=== PATIENT | male | born 2000 | race Caucasian/White ===

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

== ENCOUNTER 2020-03-30 16:08 | Emergency (ER) | payer SELFPAY ==
--- NOTE | 2020-03-30 16:53 | ER Document Report ---
ED Medical Screen (RME) - General Chief Complaint: Flank Pain Stated Complaint: FLANK PAIN Time Seen by Provider: 03/30/20 16:40 Primary Care Provider: LIZZY RODRIGEZ MD [Primary Care Provider] - Follow up as needed Mode of Arrival: Ambulatory Information source: Patient TRAVEL OUTSIDE OF THE [place] IN LAST 30 DAYS: No - HPI Notes: 03/30/20 16:47 20-year-old male presents emergency room with complaints of 4 days of dysuria, frequency and urgency with voiding. Today he states he was sitting on the toilet trying to have a BM and he had severe left-sided flank pain. Patient reports that he does have a left inguinal hernia that was diagnosed about a year and a half ago, states he supposed to follow-up with a surgeon but never followed up with a surgeon. States for his job he does do a lot of heavy lifting. Patient denies any radiating pain to his groin or testes. Denies testicular pain. Patient denies any new sexual partners, states he has been a sexual same sexual partner, not using any condoms. Denies any penile drainage or penile pain. No prior history of STIs. Denies any fevers or chills, chest pain, shortness of breath nausea vomiting or diarrhea. I have greeted and performed a rapid initial assessment of this patient. A comprehensive ED assessment and evaluation of the patient, analysis of test re sults and completion of the medical decision making process will be conducted by additional ED providers. PHYSICAL EXAMINATION: GENERAL: Well-appearing, well-nourished and in no acute distress. CV: s1, s2 regular LUNGS: No respiratory distress abd: reducable left inguinal hernia Musculoskeletal: Normal range of motion NEUROLOGICAL: Normal speech, normal gait. SKIN: Warm, Dry, normal turgor, no rashes or lesions noted. - Related Data Allergies/Adverse Reactions: No Known Allergies Allergy (Verified 10/05/14 23:57) Past Medical History - Social History Family history: Reviewed & Not Pertinent Pulmonary Medical History: Reports: Hx Asthma Renal/ Medical History: Denies: Hx Peritoneal Dialysis Musculoskeltal Medical History: Reports Hx Musculoskeletal Deformity, Reports Hx Musculoskeletal Trauma Psychiatric Medical History: Reports: Hx Anxiety, Hx Depression Traumatic Medical History: Reports: Hx Fractures - Immunizations Immunizations up to date: Yes Hx Diphtheria, Pertussis, Tetanus Vaccination: Yes Physical Exam - Vital signs Vitals: Temp Pulse Resp BP Pulse Ox 99.0 F 89 16 129/72 H 100 03/30/20 16:17 03/30/20 16:17 03/30/20 16:17 03/30/20 16:17 03/30/20 16:17 Course - Vital Signs Vital signs: Temp Pulse Resp BP Pulse Ox 99.0 F 89 16 129/72 H 100 03/30/20 16:17 03/30/20 16:17 03/30/20 16:17 03/30/20 16:17 03/30/20 16:17 Doctor's Discharge - Discharge Referrals: LIZZY RODRIGEZ MD [Primary Care Provider] - Follow up as needed
[2020-03-30 17:16] LABS: APPEARANCE,URINE SLIGHTLY-CLOUDY; BILIRUBIN,URINE NEGATIVE (NEGATIVE); COLOR,URINE YELLOW; GLUCOSE, URINE NEGATIVE (NEGATIVE); KETONES,URINE NEGATIVE (NEGATIVE); LEUKOCYTE ESTERASE,URINE NEGATIVE (NEGATIVE); NITRITE,URINE NEGATIVE (NEGATIVE); PROTEIN,URINE NEGATIVE (NEGATIVE); URINE SPECIFIC GRAVITY 1.027
[2020-03-30 17:20] LABS: ABSOLUTE LYMPHOCYTES (AUTO) 2.2 10^3/uL (0.5-4.7); ABSOLUTE MONOCYTES (AUTO) 0.5 10^3/uL (0.1-1.4); ABSOLUTE NEUT (AUTO) 7.6 10^3/uL (1.7-8.2); BASOPHILS % (AUTO) 0.2 % (0-2); EOSINOPHILS % (AUTO) 0.3 % (0-6); HEMATOCRIT 46.5 % (37.9-51.0); HEMOGLOBIN 16.1 g/dL (13.5-17.0); MEAN CORPUSCULAR HEMOGLOBIN 29.4 pg (27.0-33.4); MEAN CORPUSCULAR HGB CONC 34.5 g/dL (32.0-36.0); MEAN CORPUSCULAR VOLUME 85 fl (80-97); MONOCYTES % (AUTO) 4.4 % (3-13); PLATELET COUNT 343 10^3/uL (150-450); RED BLOOD COUNT 5.46 10^6/uL (4.35-5.55); RED CELL DISTRIBUTION WIDTH 13.4 % (11.5-14.0); SEGMENTED NEUTROPHILS % (AUTO) 74.1 % (42-78); TOTAL CELLS COUNTED % (AUTO) 100 %; WHITE BLOOD COUNT 10.3 10^3/uL (4.0-10.5)
[2020-03-30 17:38] LABS: ALKALINE PHOSPHATASE 67 U/L (38-126); ANION GAP 6 (5-19); ASPARTATE AMINO TRANSFERASE 22 U/L (17-59); BILIRUBIN,TOTAL 0.8 mg/dL (0.2-1.3); BLOOD UREA NITROGEN 15 mg/dL (7-20); CALCIUM 9.8 mg/dL (8.4-10.2); CARBON DIOXIDE 28 mmol/L (22-30); CHLORIDE 105 mmol/L (98-107); GLUCOSE 108 mg/dL (75-110); POTASSIUM 3.9 mmol/L (3.6-5.0); TOTAL PROTEIN 7.4 g/dL (6.3-8.2)
--- NOTE | 2020-03-30 18:20 | RADIOLOGY REPORT (SQ) ---
EXAM DESCRIPTION: U/S SCROTUM W/DOPPLER IMAGES COMPLETED DATE/TIME: 03/30/2020 5:45 pm REASON FOR STUDY: L inguinal hernia COMPARISON: None. TECHNIQUE: Static and realtime barrera scale imaging of the scrotum and testes. Selected color Doppler and spectral images recorded to document blood flow. LIMITATIONS: None. FINDINGS: RIGHT: TESTICLE: Normal size, 3.6 x 2.2 x 1.7 cm. Homogeneous echotexture. Microlithiasis. EPIDIDYMIS: Normal, 11 mm. HYDROCELE OR VARICOCELE: No. HERNIA OR EXTRA-TESTICULAR MASS: No. OTHER: No other significant finding. LEFT: TESTICLE: Normal size, 4 x 2.4 x 1.7 cm. Homogeneous echotexture. Microlithiasis EPIDIDYMIS: Normal, 13 mm HYDROCELE OR VARICOCELE: No. HERNIA OR EXTRA-TESTICULAR MASS: Not identified with or without Valsalva. OTHER: No other significant finding. IMPRESSION: Bilateral testicular microlithiasis. No other significant finding. TECHNICAL DOCUMENTATION: JOB ID: [id number] 2010 [employer]- All Rights Reserved Reading location - IP/workstation name: [email or web address]
--- NOTE | 2020-03-30 18:21 | RADIOLOGY REPORT (SQ) ---
EXAM DESCRIPTION: U/S RETROPERITON (RENAL/AORTA) IMAGES COMPLETED DATE/TIME: 03/30/2020 5:45 pm REASON FOR STUDY: L flank pain x 3 hours COMPARISON: None. TECHNIQUE: Dynamic and static grayscale images acquired of the kidneys and bladder and recorded on P ACS. Additional selected color Doppler and spectral images recorded. LIMITATIONS: None. FINDINGS: RIGHT KIDNEY: Normal size, 12 cm. Normal echogenicity. No solid or suspicious masses. No h ydronephrosis. No calcifications. LEFT KIDNEY: Normal size, 11.5 cm. Normal echogenicity. No solid or suspicious masses. No hydronephr osis. No calcifications. BLADDER: Patient voided prior to exam. OTHER FINDINGS: No other significant finding. IMPRESSION: Normal renal ultrasound. TECHNICAL DOCUMENTATION: JOB ID: [id number] 2010 [employer]- All Rights Reserved Reading location - IP/workstation name: [email or web address]
[2020-03-30 18:45] LABS: CHLAM PCR NOT DETECTED (NOT DETECT)
--- NOTE | 2020-03-30 20:29 | ER Document Report ---
ED General - General Chief Complaint: Urinary Problem Stated Complaint: FLANK PAIN Time Seen by Provider: 03/30/20 16:40 Primary Care Provider: LIZZY RODRIEGZ MD [ACTIVE STAFF] - Follow up as needed Mode of Arrival: Ambulatory TRAVEL OUTSIDE OF THE [place] IN LAST 30 DAYS: No - HPI Notes: Chief complaint: Left flank pain and urinary urgency History of present illness: Previously healthy 20-year-old male taking no regular medications with no known allergies presents with 2-day history intermittent urinary urgency and frequency and mild burning with urination. Today he had some intermittent episodes of severe left flank pain and during this time felt diaphoretic and nauseated thought he was going to pass out. He is currently comfortable. He denies any known prior history of kidney stones. His family history is negative for kidney stones of force he knows. - Related Data Allergies/Adverse Reactions: No Known Allergies Allergy (Verified 10/05/14 23:57) Past Medical History - General Information source: Patient, [facility] Records - Social History Smoking Status: Never Smoker Chew tobacco use (# tins/day): Yes - 1 Frequency of alcohol use: None Drug Abuse: None Family History: Arthritis, Malignancy, Thyroid Disfunction. denies: CAD, CVA, DM, Hyperlipidemia, Hypertension Pulmonary Medical History: Reports: Hx Asthma Renal/ Medical History: Denies: Hx Peritoneal Dialysis Musculoskeletal Medical History: Reports Hx Musculoskeletal Deformity, Reports Hx Musculoskeletal Trauma Psychiatric Medical History: Reports: Hx Anxiety, Hx Depression Traumatic Medical History: Reports: Hx Fractures - Immunizations Immunizations up to date: Yes Hx Diphtheria, Pertussis, Tetanus Vaccination: Yes Review of Systems - Review of Systems Notes: Constitutional: Negative for fever. HENT: Negative for sore throat. Eyes: Negative for visual changes. Cardiovascular: Negative for chest pain. Respiratory: Negative for shortness of breath. Gastrointestinal: As per HPI. Genitourinary: As per HPI. Musculoskeletal: As per HPI. Skin: Negative for rash. Neurological: Negative for headaches, weakness or numbness. 10 point ROS negative except as marked above and in HPI. Physical Exam - Vital signs Vitals: Temp Pulse Resp BP Pulse Ox 99.0 F 89 16 129/72 H 100 03/30/20 16:17 03/30/20 16:17 03/30/20 16:17 03/30/20 16:17 03/30/20 16:17 - Notes Notes: GENERAL: Slender male approximately stated age appearing in no acute distress. SKIN: Good turgor no rashes. HEAD: Normocephalic atraumatic. EYES: PERRLA. EOMI. Conjunctivae and sclerae clear. EARS: CANALS AND TMS CLEAR. NOSE: CLEAR. MOUTH: Moist mucosa. Good dentition. No stridor or edema. No drooling. NECK: Supple. No masses or thyromegaly. No adenopathy. Carotids 2+ without bruits. No JVD. BACK: Symmetrical without tenderness. CHEST: Respirations unlabored. Breath sounds clear and symmetrical. HEART: Regular rhythm. No murmur gallop or rub. ABDOMEN: Soft nontender without masses, organomegaly or rebound. Bowel sounds normally active. No bruits. GENITALIA: Deferred. EXTREMITIES: No edema. No calf tenderness. Cap refill less than 1.5 seconds. Dorsalis pedis and posterior tibial pulses 3+ and symmetrical. NEUROLOGICAL: GCS 15. Alert and oriented x3. Normal gait. Fluent speech. Cranial nerves II through XII intact. Sensorimotor and cerebellar normal. Normal tone. PSYCHIATRIC: Appropriate affect. Course - Re-evaluation Re-evalutation: 03/30/20 20:27 Urinalysis shows microscopic hematuria. The midlevel provider had ordered renal ultrasound and scrotal ultrasound. Neither showed significant pathology. I am going to go ahead and order a CT urogram for the patient. 03/30/20 21:52 CT urogram negative. I think clinically this man passed a stone earlier today. He is complaining of mild bladder irritative symptoms. His urinalysis shows microscopic hematuria is otherwise unremarkable. I will treat him symptomatically with Pyridium and have him push p.o. fluids. Will make a primary care referral for follow-up. I will give him a work note for tomorrow. 03/30/20 21:53 Findings, clinical impression and plan of treatment have been discussed with patient/family. Understanding of current findings and recommendations has been acknowledged by them and there is agreement regarding disposition and follow-up. - Vital Signs Vital signs: Temp Pulse Resp BP Pulse Ox 98.5 F 75 16 112/65 98 03/30/20 19:14 03/30/20 19:14 03/30/20 19:14 03/30/20 19:14 03/30/20 19:14 - Laboratory Result Diagrams: 03/30/20 16:58 03/30/20 16:58 Laboratory results interpreted by me: 03/30/20 16:58 Urine Blood LARGE H Urine Urobilinogen 2.0 H Urine Ascorbic Acid 40 H Discharge - Discharge Clinical Impression: Renal colic on left side Condition: Stable Disposition: HOME, SELF-CARE Additional Instructions: Increase oral fluids. Return here as needed for new or worsening symptoms: Pain that is worsening or unimproved Uncontrolled vomiting High fever or shaking chills Overall worsening Follow-up with referral physician. Work note has been provided for tomorrow. Prescriptions: Phenazopyridine HCl [Pyridium 200 mg Tablet] 200 mg PO TID #15 tablet Forms: Return to Work Referrals: LIZZY RODRIGEZ MD [ACTIVE STAFF] - Follow up as needed
--- NOTE | 2020-03-30 20:55 | RADIOLOGY REPORT (SQ) ---
EXAM DESCRIPTION: Unenhanced CT scan of the abdomen and pelvis. CLINICAL HISTORY: 20 years Male; Hematuria and left flank pain TECHNIQUE: CT of the abdomen and pelvis without intravenous contrast.. Oral contrastWas not used. All CT scans at this facility use dose modulation, iterative reconstruction, and/or weight based dosing when appropriate to reduce radiation dose to as low as reasonably achievable. This exam was performed according to our department optimization program which includes automated exposure control, adjustment of the mA and/or kv according to patient size and/or use of iterative reconstruction technique. COMPARISON: None. FINDINGS: Lower chest:The lung bases are clear. The visualized portion of heart and great vessels are normal. Abdomen: Liver and biliary tree: The unenhanced liver and gallbladder are unremarkable. Pancreas: Normal Spleen:Within normal limits Kidneys: The right kidney contains a 2 mm nonobstructing stone. No definitive left renal stones. Kidneys are normal in size shape and position. No hydronephrosis. In the left pelvis adjacent to the bladder base in the expected location of the UVJ is a 2 mm calcification. This most likely represents a distal ureteral stone. A small pelvic phlebolith might also have this appearance. Adrenal glands:Within normal limits Vascular structures:Within normal limits Retroperitoneum: There is crowding of the bowel into the retroperitoneum and the lack of body fat. No obvious abnormality. Abdominal wall: normal GI: Moderate stool is seen in the colon. The bowel is not dilated. There are scattered diverticula. No evidence of acute diverticulitis. Appendix: The appendix appears normal. General: No free air. No free fluid Pelvis: Lymph nodes: No mass or lymphadenopathy Bladder: Unremarkable. Pelvis: No pelvic mass or adenopathy. Bones: 1. Small nonobstructing right kidney stone. 2. Calcification in the left pelvis near the bladder base consistent with a distal ureteral stone. There is no obvious left-sided hydronephrosis or hydroureter. IMPRESSION: Normal CT of the abdomen and pelvis with contrast.
[2020-03-30] MEDS ORDERED: PHENAZOPYRIDINE HCL 200 MG TABLET PO ONE (21:50)
[2020-03-30 22:11] VITALS: BP 110/66
== END 2020-03-30 22:09 | disposition home or self-care (01) ==
LOC: ER 16:08
DX: N23 Unspecified renal colic (principal); R30.0 Dysuria; R35.0 Frequency of micturition
CPT/HCPCS: 99284; 36415; 85025; 80053; 81001; 87491; 87591; 76770; 76870; 93976; 74176; J3490